=== PATIENT | female | born 1980 | race Caucasian/White ===

== ENCOUNTER 2016-11-03 13:21 | Emergency (ER) | payer MEDICAID ==
[~2016-11-03] VITALS: Ht 157.5 cm; Wt 90.0 kg
[2016-11-03] MEDS ORDERED: CIMETIDINE400 M1 PO (13:47)
[2016-11-03] MEDS ORDERED: PREDNISONE50 MG PO (13:47)
[2016-11-03] MEDS ORDERED: BENADRYL 50MG C50 MG PO (13:47)
[2016-11-03 14:05] VITALS: BP 138/94
== END 2016-11-03 14:05 | disposition home or self-care (01) | DRG 607 ==
LOC: ED 13:21
DX: S50.862A Insect bite (nonvenomous) of left forearm, initial encounter (principal); L08.9 Local infection of the skin and subcutaneous tissue, unspecified; W57.XXXA Bitten or stung by nonvenomous insect and other nonvenomous arthropods, initial encounter; Y93.89 Activity, other specified; Y92.007 Garden or yard of unspecified non-institutional (private) residence as the place of occurrence of the external cause

== ENCOUNTER 2019-09-01 02:05 | Observation (INO) | payer MEDICAID ==
[~2019-09-01] VITALS: Ht 157.5 cm; Wt 109.0 kg
[~2019-09-01 02:05] MED LIST: BENADRYL 50MG C50 MG PO; CIMETIDINE400 M1 PO; PREDNISONE50 MG PO
--- NOTE | 2019-09-01 02:12 | NUR ---
TO ROOM FOR TRIAGE.
--- NOTE | 2019-09-01 02:59 | NUR ---
PT N/V 300CC BLUE TINTED FLUID/FOOD HAD CAKE FOR DINNER LAST PM DR Anamaria SAUNDERS
[2019-09-01 03:08] LABS: HEMATOCRIT 39.2 % (37.0-47.0); HEMOGLOBIN 12.6 g/dl (12.0-16.0); IMMATURE GRANULOCYTES 0.4 % (0.0-5.0); MEAN CELL VOLUME 87.3 fL CALC (80.0-100.0); MEAN CORPUSCULAR HGB 28.1 pG CALC (26.0-32.0); MEAN CORPUSCULAR HGB CONC 32.1 g/dL CAL (32.0-36.0); NEUT# 9.14 thou/uL (2.00-7.15); RED BLOOD COUNT 4.49 mill/uL (4.20-5.60); RED CELL DISTRI WIDTH 15.2 % (11.5-15.5)
--- NOTE | 2019-09-01 03:12 | NUR ---
PT REMOVED MASAL O2 CANNULA SAYS SHE WILL NOT USE O2
[2019-09-01 03:21] LABS: ALBUMIN 3.8 g/dL (3.2-5.0); ALKALINE PHOSPHATASE 73 u/l (38-126); ANION GAP 8 (6-22 (CALC)); BILIRUBIN, TOTAL 0.4 mg/dL (0.0-1.4); BUN 13 mg/dL (7-17); BUN/CREATININE RATIO 16 (12-20 (CALC)); CARBON DIOXIDE 25 mmol/l (22-30); CHLORIDE 107 mmol/l (95-108); CREATININE 0.9 mg/dL (0.5-1.0); GFR > 60 ML/MIN (>=60 (CALC)); GFR FOR AFR.AMER. > 60 ML/MIN (>=60 (CALC)); POTASSIUM 3.9 mmol/l (3.5-5.1); SODIUM 136 mmol/l (137-146); TOTAL PROTEIN 7.3 g/dL (6.3-8.2)
[2019-09-01 03:24] LABS: SGOT/AST 35 u/l (14-36)
--- NOTE | 2019-09-01 03:26 | NUR ---
PT IS PAINFREE
[2019-09-01 03:50] LABS: MYOGLOBIN 55 ng/mL (0 - 62)
--- NOTE | 2019-09-01 04:37 | NUR ---
AWAKENED FROM SLEEP WARM BLANKETS TOP SR NO ECTOPY PT REMAINS PAINFREE
--- NOTE | 2019-09-01 05:30 | NUR ---
SR NO ECTOPY DENIES CP NO NAUSEA W/P/D SKIN
--- NOTE | 2019-09-01 07:00 | NUR ---
PT ADMISSION COMPLETED, RESTING IN BED WITH NO COMPLAINTS, SEE INTERVNETIONS FOR DETIALS, CALL TAYLOR WITHIN REACH
--- NOTE | 2019-09-01 07:00 | NUR ---
PT UP TO RR TO VOID PT REPORT TO GAMA LAWSON
[2019-09-01 07:42] VITALS: BP 113/66
--- NOTE | 2019-09-01 09:20 | NUR ---
COMPLAINING OF PAIN, MD AWARE, CALL T[facility] WITHIN REACH
--- NOTE | 2019-09-01 10:59 | NUR ---
MEDICATED FRO HEADACHE WITH GOOD RELIEF, CALL TAY[facility] WITHIN REACH
--- NOTE | 2019-09-01 11:00 | NUR ---
RECIEVED REPORT FROM GAMA
--- NOTE | 2019-09-01 11:07 | NUR ---
PT AWARE OF PLANNED D/C ONCE LAB WORK RESULTED AND VERIFIES, CALL BRANDON GALVEZ
[2019-09-01 11:08] LABS: CHOLESTEROL HDL RATIO 8.9 (<4.4 (CALC))
--- NOTE | 2019-09-01 12:00 | NUR ---
Pt resting on stretcher with eyes open. No distress noted. Call flores within reach. Denies any needs at this time. Will continue to monitor.
--- NOTE | 2019-09-01 12:00 | NUR ---
PT COMFORTABLE IN BED DENIES ANY NEEDS AT THIS TIME. CALL LIGHT WITHIN REACH
[2019-09-01] MEDS ORDERED: LIPITOR20 MG PO (12:43)
[2019-09-01] MEDS ORDERED: SYNTHROID50 MCG PO (12:43)
[2019-09-01] MEDS ORDERED: AMLODIPINE BESYL5 MG PO (12:43)
[2019-09-01] MEDS ORDERED: ADLT ASA LOW81 MG PO (12:44)
--- NOTE | 2019-09-01 13:00 | NUR ---
PT NOTIFIED OF RESULTS AND PENDING DISCHARGE.
--- NOTE | 2019-09-01 13:20 | NUR ---
Dr Smith notified of repeat lab work by LULU Ruffin. Pt to be discharged home
--- NOTE | 2019-09-01 13:55 | NUR ---
DISCHARGE INSTRUCTIONS GIVIN TO PT AND SHE VERBALIZE UNDERSTANDING. PT AMBULATED OUT OF ER WITH STEADY GAIT. EDU ON DX AND MEDS
[2019-09-01 13:58] VITALS: BP 113/66
--- NOTE | 2019-09-01 13:58 | NUR ---
Discharge instructions given. Patient verbalizes understanding of same. Discharged in stable condition via Ambulatory to Home with family. All belongings sent with pt.
== END 2019-09-01 13:58 | disposition home or self-care (01) | DRG 313 ==
LOC: ED 02:05 → ED-I 03:46 → ED 04:03 → ED-I 04:04
PROVIDERS: Emergency Medicine; Internal Medicine; ADMIT Internal Medicine; ATTEND Internal Medicine
DX: R07.9 Chest pain, unspecified (principal); I10 Essential (primary) hypertension; E03.9 Hypothyroidism, unspecified; E78.5 Hyperlipidemia, unspecified; E66.9 Obesity, unspecified; T46.5X6A Underdosing of other antihypertensive drugs, initial encounter; T38.1X6A Underdosing of thyroid hormones and substitutes, initial encounter; F17.200 Nicotine dependence, unspecified, uncomplicated; Z91.128 Patient's intentional underdosing of medication regimen for other reason; Z20.828 Contact with and (suspected) exposure to other viral communicable diseases
CPT/HCPCS: Q9967

== ENCOUNTER 2020-05-22 20:41 | Emergency (ER) | payer OTHER ==
[~2020-05-22] VITALS: Ht 157.5 cm; Wt 115.0 kg
[~2020-05-22 20:41] MED LIST changes: +ADLT ASA LOW81 MG PO; +AMLODIPINE BESYL5 MG PO; +LIPITOR20 MG PO; +SYNTHROID50 MCG PO
[2020-05-22] MEDS ORDERED: MAXIDE1 COMBO PO (21:09)
[2020-05-22] MEDS ORDERED: MAXZIDE-2537.5 MG/TA PO (21:11)
[2020-05-22] MEDS ORDERED: ATORVASTATIN CA40 MG PO (21:11)
[2020-05-22] MEDS ORDERED: PAROXETINE20 MG PO (21:12)
[2020-05-22] MEDS ORDERED: LEVOTHYROXIN75 MCG PO (21:13)
[2020-05-22 21:41] LABS: HEMATOCRIT 34.2 % (37.0-47.0); HEMOGLOBIN 11.1 g/dl (12.0-16.0); IMMATURE GRANULOCYTES 0.4 % (0.0-5.0); MEAN CELL VOLUME 90.5 fL CALC (80.0-100.0); MEAN CORPUSCULAR HGB 29.4 pG CALC (26.0-32.0); MEAN CORPUSCULAR HGB CONC 32.5 g/dL CAL (32.0-36.0); NEUT# 7.57 thou/uL (2.00-7.15); RED BLOOD COUNT 3.78 mill/uL (4.20-5.60); RED CELL DISTRI WIDTH 13.9 % (11.5-15.5)
[2020-05-22 21:48] LABS: URINE BILIRUBIN - DIPSTICK NEGATIVE (NEGATIVE); URINE BLOOD DIPSTICK NEGATIVE (NEGATIVE); URINE COLOR YELLOW; URINE GLUCOSE - DIPSTICK NEGATIVE (NEGATIVE); URINE KETONE NEGATIVE (NEGATIVE); URINE LEUK ESTERASE NEGATIVE (NEGATIVE); URINE NITRITE - DIPSTICK NEGATIVE (Negative); URINE PROTEIN - DIPSTICK NEGATIVE (NEG-TRACE); URINE SPECIFIC GRAVITY 1.015; URINE UROBILINOGEN - DIPSTICK 0.2 E.U./dL (0.2)
[2020-05-22 22:01] LABS: ALBUMIN 3.7 g/dL (3.2-5.0); ALKALINE PHOSPHATASE 64 u/l (38-126); AMYLASE 48 u/l (30-110); ANION GAP 9 (6-22 (CALC)); BILIRUBIN, TOTAL 0.4 mg/dL (0.0-1.4); BUN 9 mg/dL (7-17); BUN/CREATININE RATIO 10 (12-20 (CALC)); CARBON DIOXIDE 28 mmol/l (22-30); CHLORIDE 104 mmol/l (95-108); GFR > 60 ML/MIN (>=60 (CALC)); GFR FOR AFR.AMER. > 60 ML/MIN (>=60 (CALC)); LIPASE 80 u/l (23-300); POTASSIUM 3.8 mmol/l (3.5-5.1); SGOT/AST 19 u/l (14-36); SODIUM 137 mmol/l (137-146); TOTAL PROTEIN 6.5 g/dL (6.3-8.2)
[2020-05-23] MEDS ORDERED: PERCOCET 5/325M1 TAB PO (00:13)
[2020-05-23 00:19] VITALS: BP 127/65
== END 2020-05-23 00:35 | disposition home or self-care (01) ==
LOC: ED 20:41
PROVIDERS: Emergency Medicine
DX: N83.201 Unspecified ovarian cyst, right side (principal); I10 Essential (primary) hypertension; F17.200 Nicotine dependence, unspecified, uncomplicated
CPT/HCPCS: Q9967

== ENCOUNTER 2023-02-27 15:37 | Emergency (ER) | payer OTHER ==
[~2023-02-27] VITALS: Ht 157.5 cm; Wt 122.4 kg
[~2023-02-27 15:37] MED LIST changes: +ATORVASTATIN CA40 MG PO; +LEVOTHYROXIN75 MCG PO; +MAXIDE1 COMBO PO; +MAXZIDE-2537.5 MG/TA PO; +PAROXETINE20 MG PO; +PERCOCET 5/325M1 TAB PO
[2023-02-27 16:24] VITALS: BP 152/96
[2023-02-27] MEDS ORDERED: ONDANSETRON4 MG PO (17:24)
[2023-02-27] MEDS ORDERED: TAM75CAP PO (17:24)
[2023-02-27 17:34] VITALS: BP 152/96
== END 2023-02-27 17:52 | disposition home or self-care (01) ==
LOC: ED 15:37
DX: J11.1 Influenza due to unidentified influenza virus with other respiratory manifestations (principal); I10 Essential (primary) hypertension; F31.9 Bipolar disorder, unspecified; F17.210 Nicotine dependence, cigarettes, uncomplicated; Z20.822 Contact with and (suspected) exposure to COVID-19

== ENCOUNTER 2023-11-02 08:56 | Emergency (ER) | payer OTHER ==
[~2023-11-02] VITALS: Ht 157.5 cm; Wt 117.9 kg
[2023-11-02] VITALS (13 sets, daily range): BP systolic 122–163; BP diastolic 77–100
[~2023-11-02 08:56] MED LIST changes: +ONDANSETRON4 MG PO; +TAM75CAP PO; +ZOFRAN4 MG/TAB PO
[2023-11-02] MEDS ORDERED: KETOROLAC TROMETHAMINE 30 MG/ML SDV IV ONE (09:10)
[2023-11-02 09:37] LABS: CREATININE 0.9 mg/dL (0.5-1.0); POTASSIUM 4.5 mmol/l (3.5-5.1)
[2023-11-02 09:41] LABS: BASO% 0.4 % (0-3); EOS% 3.2 % (0-8); HEMATOCRIT 37.1 % (37.0-47.0); HEMOGLOBIN 11.7 g/dl (12.0-16.0); IMMATURE GRANULOCYTES 0.5 % (0.0-5.0); LYMPH% 41.6 % (15-41); MEAN CELL VOLUME 89.2 fL CALC (80.0-100.0); MEAN CORPUSCULAR HGB 28.1 pG CALC (26.0-32.0); MEAN CORPUSCULAR HGB CONC 31.5 g/dL CAL (32.0-36.0); MONO% 8.3 % (2-13); NEUT# 4.2 thou/uL (2.00-7.15); RED BLOOD COUNT 4.16 mill/uL (4.20-5.60); RED CELL DISTRI WIDTH 14.4 % (11.5-15.5)
[2023-11-02] MEDS ORDERED: NAPROXEN500 MG PO (11:38)
== END 2023-11-02 11:30 | disposition home or self-care (01) | DRG 556 ==
LOC: ED 08:56
PROVIDERS: Family Medicine
DX: M25.561 Pain in right knee (principal); M17.11 Unilateral primary osteoarthritis, right knee; I10 Essential (primary) hypertension; F31.9 Bipolar disorder, unspecified; F17.200 Nicotine dependence, unspecified, uncomplicated
CPT/HCPCS: Q9967

== ENCOUNTER 2023-12-05 16:43 | Emergency (ER) | payer OTHER ==
[2023-12-05] VITALS (7 sets, daily range): BP systolic 132–196; BP diastolic 79–121
[~2023-12-05] VITALS: Ht 157.5 cm; Wt 117.9 kg
[~2023-12-05 16:43] MED LIST changes: +NAPROXEN500 MG PO
[2023-12-05 17:03] LABS: BASO% 0.4 % (0-3); HEMOGLOBIN 11.3 g/dl (12.0-16.0); IMMATURE GRANULOCYTES 0.2 % (0.0-5.0); MEAN CELL VOLUME 87.8 fL CALC (80.0-100.0); MEAN CORPUSCULAR HGB 27.6 pG CALC (26.0-32.0); MEAN CORPUSCULAR HGB CONC 31.4 g/dL CAL (32.0-36.0); MONO% 6.3 % (2-13); NEUT# 6.87 thou/uL (2.00-7.15); NEUT% 53.4 % (42-76); RED BLOOD COUNT 4.1 mill/uL (4.20-5.60); RED CELL DISTRI WIDTH 14.5 % (11.5-15.5)
[2023-12-05 17:04] LABS: URINE BILIRUBIN - DIPSTICK Negative (NEGATIVE); URINE BLOOD DIPSTICK Small (NEGATIVE); URINE GLUCOSE - DIPSTICK Negative (NEGATIVE); URINE KETONE Negative (NEGATIVE); URINE LEUK ESTERASE Negative (NEGATIVE); URINE NITRITE - DIPSTICK Negative (Negative); URINE PROTEIN - DIPSTICK Negative (NEG-TRACE); URINE UROBILINOGEN - DIPSTICK 0.2 E.U./dL (0.2)
[2023-12-05 17:07] LABS: URINE COLOR Yellow
[2023-12-05 17:17] LABS: CREATININE 0.9 mg/dL (0.5-1.0); POTASSIUM 3.8 mmol/l (3.5-5.1)
[2023-12-05 17:23] LABS: URINE RBC 0-2 RBC/hpf (0-5); URINE WBC 0-2 WBC/hpf (0-5)
[2023-12-05 17:24] LABS: URINE SQUAMOUS EPITHELIAL CELL RARE EPI/hpf (0-FEW)
[2023-12-05 17:28] LABS: ALBUMIN 4.1 g/dL (3.2-5.0); BILIRUBIN, TOTAL 0.2 mg/dL (0.02-1.3); TOTAL PROTEIN 7.3 g/dL (6.3-8.2)
[2023-12-05 17:30] LABS: LYMPH% 36.7 % (15-41)
== END 2023-12-05 19:40 | disposition home or self-care (01) | DRG 761 ==
LOC: ED 16:43
PROVIDERS: Nurse Practitioner
DX: D25.9 Leiomyoma of uterus, unspecified (principal); N83.201 Unspecified ovarian cyst, right side; I10 Essential (primary) hypertension; F31.9 Bipolar disorder, unspecified; F17.200 Nicotine dependence, unspecified, uncomplicated

== ENCOUNTER 2024-03-13 05:13 | Emergency (ER) | payer OTHER ==
[~2024-03-13] VITALS: Ht 157.5 cm; Wt 111.6 kg
[2024-03-13] MEDS ORDERED: ONDANSETRON HCl 4 MG/2 ML SDV IV ONE (05:25)
[2024-03-13] MEDS ORDERED: DIPHENOXYLATE W/ ATROPINE 2.5 MG TAB PO ONE (05:25)
[2024-03-13] MEDS ORDERED: SODIUM CHLORIDE 0.9% 1,000 ML IV ONE (05:25)
[2024-03-13 06:30] LABS: BASO% 0.2 % (0-3); EOS% 2.2 % (0-8); HEMATOCRIT 36.3 % (37.0-47.0); HEMOGLOBIN 11.3 g/dl (12.0-16.0); IMMATURE GRANULOCYTES 0.3 % (0.0-5.0); LYMPH% 18.2 % (15-41); MEAN CELL VOLUME 84.2 fL CALC (80.0-100.0); MEAN CORPUSCULAR HGB 26.2 pG CALC (26.0-32.0); MEAN CORPUSCULAR HGB CONC 31.1 g/dL CAL (32.0-36.0); MONO% 7.7 % (2-13); NEUT# 8.31 thou/uL (2.00-7.15); NEUT% 71.4 % (42-76); RED BLOOD COUNT 4.31 mill/uL (4.20-5.60); RED CELL DISTRI WIDTH 15.8 % (11.5-15.5)
[2024-03-13 06:31] LABS: ALBUMIN 4.4 g/dL (3.2-5.0); CREATININE 0.9 mg/dL (0.5-1.0); POTASSIUM 4.3 mmol/l (3.5-5.1); TOTAL PROTEIN 7.5 g/dL (6.3-8.2)
[2024-03-13 06:35] LABS: BILIRUBIN, TOTAL 0.6 mg/dL (0.02-1.3)
[2024-03-13] MEDS ORDERED: ONDANSETRON4 MG PO (06:38)
[2024-03-13 06:53] VITALS: BP 147/97
== END 2024-03-13 06:55 | disposition home or self-care (01) | DRG 392 ==
LOC: ED 05:13
PROVIDERS: Family Medicine
DX: K52.9 Noninfective gastroenteritis and colitis, unspecified (principal); I10 Essential (primary) hypertension; F31.9 Bipolar disorder, unspecified; Z72.0 Tobacco use
CPT/HCPCS: J2405

== ENCOUNTER 2024-05-05 00:03 | Emergency (ER) | payer SELFPAY ==
[~2024-05-05] VITALS: Ht 157.5 cm; Wt 116.1 kg
[~2024-05-05 00:03] MED LIST changes: +ATROPINE SULFATE 0.1 MG/ML 10 ML SYR IV ONE; +Heparin SODIUM (Porcine) 5,000 UNITS/ML SDV IV ONE; +NITROGLYCERIN IN D5W 25 MG/250 ML BTL IV ONE
[2024-05-05] MEDS ORDERED: Heparin SODIUM (Porcine) 500 ML IV ONE (00:15)
[2024-05-05] MEDS ORDERED: Heparin SODIUM (Porcine) 5,000 UNITS/ML SDV IV ONE (00:15)
[2024-05-05] MEDS ORDERED: NITROGLYCERIN IN D5W 250 ML IV ONE (00:15)
[2024-05-05] MEDS ORDERED: MORPHINE SULFATE 4 MG/ML VIAL IV ONE (00:30)
[2024-05-05] MEDS ORDERED: PROMETHAZINE HCL 25 MG/ML AMP IV ONE (00:30)
[2024-05-05 00:32] LABS: BASO% 0.3 % (0-3); EOS% 2.2 % (0-8); HEMATOCRIT 33.7 % (37.0-47.0); HEMOGLOBIN 10.5 g/dl (12.0-16.0); IMMATURE GRANULOCYTES 0.3 % (0.0-5.0); MEAN CELL VOLUME 80.6 fL CALC (80.0-100.0); MEAN CORPUSCULAR HGB 25.1 pG CALC (26.0-32.0); MEAN CORPUSCULAR HGB CONC 31.2 g/dL CAL (32.0-36.0); MONO% 7.8 % (2-13); NEUT# 6.87 thou/uL (2.00-7.15); NEUT% 46.4 % (42-76); RED BLOOD COUNT 4.18 mill/uL (4.20-5.60); RED CELL DISTRI WIDTH 15.8 % (11.5-15.5)
[2024-05-05 00:44] LABS: ALBUMIN 3.9 g/dL (3.2-5.0); BILIRUBIN, TOTAL 0.4 mg/dL (0.02-1.3); CREATININE 1.2 mg/dL (0.5-1.0); POTASSIUM 3.7 mmol/l (3.5-5.1); TOTAL PROTEIN 7.2 g/dL (6.3-8.2)
[2024-05-05 00:51] VITALS: BP 71/30
[2024-05-05 00:52] LABS: ACT PARTIAL THROMBO TIME 25.7 SECONDS (20.0-32.5); D-DIMER 0.38 mg/L (0.19-0.60); INTERNATIONAL NORMALIZED RATIO 0.9 RATIO (0.7-1.3)
[2024-05-05 00:53] LABS: PROTHROMBIN TIME 10.1 SECONDS (9.0-12.5)
[2024-05-05 00:56] VITALS: BP 77/31
[2024-05-05 01:01] VITALS: BP 121/65
[2024-05-05 01:22] VITALS: BP 121/65
== END 2024-05-05 01:22 | disposition short-term general hospital (02) | DRG 282 ==
LOC: ED 00:03
PROVIDERS: Family Medicine
DX: I21.3 ST elevation (STEMI) myocardial infarction of unspecified site (principal); I10 Essential (primary) hypertension; F31.9 Bipolar disorder, unspecified; F17.200 Nicotine dependence, unspecified, uncomplicated
CPT/HCPCS: J0461; J1644; J2305; J2550